=== PATIENT | male | born 1955 | race Caucasian/White ===

== ENCOUNTER → 2016-12-06 | Outpatient (CLI) | payer OTHER ==
--- NOTE | 2016-12-06 13:59 | XR ---
EXAMINATION TYPE: XR lumbosacral spine min 4V DATE OF EXAM: 12/06/2016 COMPARISON: NONE HISTORY: Extreme low back pain strain injury TECHNIQUE: 5 view lumbar spine FINDINGS: Disc space narrowing is present to the lower lumbar spine L4-5 and L5-S1. Posterior disc sp gopal narrowing is present L3-4. Loss of disc height is present within the upper lumbar spine disc leve ls as well. Facet degenerative changes are present L4-5 L5-S1 bilaterally. No spondylolytic defects are evident. Scoliosis is present. There 5 lumbar-type vertebral bodies. The pedicles are intact. IMPRESSION: 1. Degenerative disc changes through the lumbar spine
== END | disposition home or self-care (01) ==
LOC: RADXRYALE 13:32
PROVIDERS: ATTEND Internal Medicine
DX: M47.816 Spondylosis without myelopathy or radiculopathy, lumbar region (principal)
CPT/HCPCS: 72110

== ENCOUNTER → 2017-05-15 | Outpatient (CLI) | payer OTHER ==
--- NOTE | 2017-05-15 12:50 | EST ---
EXERCISE STRESS DATE OF SERVICE: 05/15/2017 AGE: 61 SEX: Male HT: 5'11" WT: 195 pounds PROTOCOL: ALMA STAGE: III DURATION OF EXERCISE: 10:30 HEART RATE REST: 59 BLOOD PRESSURE REST: 124/76 MAXIMUM HEART RATE ACHIEVED: 150 MAXIMUM BLOOD PRESSURE: 168/88 85% MPHR: 137 100% MPHR: 161 METS: 12.1 INDICATIONS: Chest pain. CLINICAL INFORMATION: Patient was exercised for a total period of 10 minutes and 30 seconds. Peak heart rate of 150 was achieved. Maximum blood pressure of 168/88 mmHg was noted. The patient did not complain of any chest pain during the test. The resting EKG shows normal sinus rhythm with normal MS interval and QRS duration and normal ST-T waves. No ST-segment depression suggestive of ischemia is noted. No dysrhythmias are noted. FINAL IMPRESSION: 1. This exercise status is not suggestive of ischemia. 2. Patient's exercise tolerance is normal. 3. The patient did not complain of any chest pain during the test. MMODL / IJN: [id number] /
--- NOTE | 2017-05-15 13:52 | ECHOF ---
Referral Reason:R07.89 pressure in chest MEASUREMENTS -------- HEIGHT: 182.9 cm WEIGHT: 88.5 kg BP: IVSd: 1.0 cm (0.6 - 1.1) LVIDd: 4.7 cm (3.9 - 5.3) LVPWd: 1.0 cm (0.6 - 1.1) IVSs: 1.4 cm LVIDs: 3.1 cm LVPWs: 1.0 cm LAESV Index (A-L): 16.07 ml/m Ao Diam: 3.7 cm (2.0 - 3.7) AV Cusp: 2.0 cm (1.5 - 2.6) LA Diam: 2.9 cm (2.7 - 3.8) MV EXCURSION: 23.427 mm (> 18.000) MV EF SLOPE: 153 mm/s (70 - 150) EPSS: 0.3 cm MV E Trell: 0.57 m/s MV DecT: 233 ms MV A Trell: 0.50 m/s MV E/A Ratio: 1.13 RAP: 5.00 mmHg RVSP: 16.97 mmHg FINDINGS -------- Sinus rhythm. This was a technically good study. The left ventricular size is normal. Left ventricular wall thickness is normal. Overall left vent ricular systolic function is normal with, an EF between 55 - 60 %. The right ventricle is normal in size and function. The left atrium is normal in size. The right atrium is normal in size. The aortic valve is trileaflet, and appears structurally normal. No aortic stenosis or regurgitation. The mitral valve leaflets are mildly thickened. There is trace mitral regurgitation. Trace tricuspid regurgitation present. The right ventricular systolic pressure, as measured by Dopp ler, is 16.97mmHg. Pulmonic valve appears structurally normal. The aortic root size is normal. Normal inferior vena cava with normal inspiratory collapse consistent with estimated right atrial pre ssure of 5 mmHg. The pericardium is normal. CONCLUSIONS -------- 1. Sinus rhythm. 2. This was a technically good study. 3. The left ventricular size is normal. 4. Left ventricular wall thickness is normal. 5. Overall left ventricular systolic function is normal with, an EF between 55 - 60 %. 6. The right ventricle is normal in size and function. 7. The left atrium is normal in size. 8. The right atrium is normal in size. 9. The aortic valve is trileaflet, and appears structurally normal. No aortic stenosis or regurgitati on. 10. The mitral valve leaflets are mildly thickened. 11. There is trace mitral regurgitation. 12. Trace tricuspid regurgitation present. 13. The right ventricular systolic pressure, as measured by Doppler, is 16.97mmHg. 14. Pulmonic valve appears structurally normal. 15. The aortic root size is normal. 16. Normal inferior vena cava with normal inspiratory collapse consistent with estimated right atrial pressure of 5 mmHg. 17. The pericardium is normal. PHOTOGRAPH DEVELOPER: Francy Lee RDCS
== END | disposition home or self-care (01) ==
LOC: RADNMMAIN 11:03
PROVIDERS: ATTEND Internal Medicine
DX: I08.1 Rheumatic disorders of both mitral and tricuspid valves (principal); R07.89 Other chest pain
CPT/HCPCS: 93017; 93306

== ENCOUNTER 2021-04-12 12:47 | Emergency (ER) | payer OTHER ==
[2021-04-12 13:10] VITALS: RESP 16
--- NOTE | 2021-04-12 13:31 | ED ---
General Adult HPI - General Chief complaint: Weakness Stated complaint: Weakness Time Seen by Provider: 04/12/21 13:15 Source: patient, RN notes reviewed Mode of arrival: ambulatory Limitations: no limitations - History of Present Illness Initial comments: patient is a pleasant 65-year-old male presenting to the emergency department with concerns for COVID-19 infection. Onset of symptoms was 4 days ago. Patient did lose his taste and smell however has arty gotten the back. Patient states he is feeling somewhat better. Patient has had some fatigue. Patient has had minimal cough. No dyspnea. - Related Data Home Medications Medication Instructions Recorded Confirmed Anti-Viral Tincture 30 drops PO TID 04/12/21 04/12/21 D3-K2 [place] 3 - 6 sprays PO DAILY 04/12/21 04/12/21 Homeopathic [place]. Alb. Pellet 1 dose PO TID 04/12/21 04/12/21 Liposomal Vitamin C 5 ml PO BID 04/12/21 04/12/21 Allergies Allergy/AdvReac Type Severity Reaction Status Date / Time No Known Allergies Allergy Verified 04/12/21 13:43 Review of Systems ROS Statement: Those systems with pertinent positive or pertinent negative responses have been documented in the HPI. ROS Other: All systems not noted in ROS Statement are negative. Constitutional: Denies: fever (Patient denies) Eyes: Denies: eye pain ENT: Denies: throat pain Respiratory: Reports: as per HPI, cough. Denies: dyspnea Cardiovascular: Denies: chest pain Endocrine: Reports: fatigue Gastrointestinal: Denies: abdominal pain Genitourinary: Denies: dysuria Musculoskeletal: Denies: back pain Skin: Denies: rash Neurological: Denies: confusion Past Medical History Past Medical History: No Reported History History of Any Multi-Drug Resistant Organisms: None Reported Past Surgical History: No Surgical Hx Reported Past Psychological History: No Psychological Hx Reported Smoking Status: Never smoker Past Alcohol Use History: None Reported Past Drug Use History: None Reported General Exam Limitations: no limitations General appearance: alert, in no apparent distress Head exam: Present: normocephalic Eye exam: Present: normal appearance Neck exam: Present: normal inspection Respiratory exam: Present: normal lung sounds bilaterally Cardiovascular Exam: Present: regular rate, normal rhythm GI/Abdominal exam: Present: soft. Absent: tenderness Extremities exam: Present: normal inspection. Absent: pedal edema, calf tenderness Neurological exam: Present: alert Psychiatric exam: Present: normal affect, normal mood Skin exam: Present: normal color Course Vital Signs 04/12/21 13:07 Temperature 100.8 F H Pulse Rate 84 Respiratory 16 Rate Blood Pressure 112/72 O2 Sat by Pulse 96 Oximetry - Reevaluation(s) Reevaluation #1: 04/12/21 13:29 Patient offered but refused Tylenol. Patient feels his temperature elevation was from wearing multiple layers of clothing. Medical Decision Making - Medical Decision Making Patient reevaluated and updated. Patient is not a candidate for monoclonal antibodies. - Lab Data Lab Results 04/12/21 Range/Units 13:17 Coronavirus (PCR) Detected A (Not Detectd) Disposition Clinical Impression: COVID-19 Disposition: HOME SELF-CARE Condition: Stable Instructions (If sedation given, give patient instructions): Coronavirus Disease 2019 (COVID-19) Additional Instructions: Return for difficulty breathing, not tolerating fluids, worsening symptoms or any other concerns. Please do follow-up to primary care physician within the next day or 2 for recheck. [id number] vitamin C, vitamin D, and zinc. [id number] Tylenol if needed for fever or chills. Continue to quarantine per CDC guidelines Is patient prescribed a controlled substance at d/c from ED?: No Referrals: Tasia Reyes MD [Primary Care Provider] - 1-2 days Time of Disposition: 13:51
[2021-04-12 14:06] VITALS: BP 107/76; PULSE 85; TEMP 100
== END 2021-04-12 14:07 | disposition home or self-care (01) ==
LOC: EC 12:47
DX: U07.1 COVID-19 (principal)
CPT/HCPCS: 87635; 99284